=== PATIENT | male | born 1970 | race Caucasian/White ===

== ENCOUNTER 2023-02-16 13:53 | Emergency (ER) | payer OTHER, SELFPAY ==
[2023-02-16 14:11] VITALS: BP 147/97; PULSE 89; RESP 20; TEMP 36.6; O2SAT 95; BMI 37.2
--- NOTE | 2023-02-16 14:16 | XR_ITS ---
The [address] [address] Patient Name: DYLAN BRADY MRN: [id number] date: 1970 Sex: M Assigned Patient Location: ER Current Patient Location: ED.MAIN Accession/Order Number: [id number] Exam Date: 02/16/2023 14:19 Report Date: 02/16/2023 15:00 At the request of: EVELINE CROSS Procedure: XR hand RT min 3V EXAM: XR hand RT min 3V HISTORY: Right hand injury COMPARISON: None. TECHNIQUE: 3 views of the right hand FINDINGS: No acute fracture or dislocation. 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 The soft tissue is unremarkable. No radiopaque free body is seen within the soft tissue. XR/XR hand RT min 3V IMPRESSION: No acute fracture. Electronically authenticated by: CHEYENNE HERNANDEZ Date: 02/16/2023 15:00
--- NOTE | 2023-02-16 14:17 | ED_ITS ---
HPI - Wound/Laceration General Chief Complaint: Wound/Laceration Stated Complaint: UPPER EXTREMITY INJURY RIGHT HAND-[facility] Time Seen by Provider: 02/16/23 14:02 Source: patient Mode of arrival: walk-in Limitations: no limitations History of Present Illness HPI narrative: Patient is a 52-year-old male who presents to the emergency department for the evaluation of injury to the right hand that occurred approximately one hour ago work. He states that he pinched the skin of the right lateral hand in a machine and sustained a small laceration. He is right-hand dominant. Tetanus is up-to-date. No active bleeding at this time. No medications taken prior to arrival. He has no significant pain. Related Data Home Medications Medication Instructions Recorded Confirmed atenolol 100 mg tablet 100 mg PO DAILY 02/16/23 02/16/23 atorvastatin 20 mg tablet 20 mg PO DAILY 02/16/23 02/16/23 lisinopril 40 mg tablet 40 mg PO DAILY 02/16/23 02/16/23 Allergies Allergy/AdvReac Type Severity Reaction Status Date / Time prednisone Allergy swelling Verified 02/16/23 14:16 to face Review of Systems ROS Constitutional Denies: fever or chills Ears, nose, mouth, and throat Denies: throat pain Cardiovascular Denies: chest pain Respiratory Denies: shortness of breath Gastrointestinal Denies: nausea or vomiting Musculoskeletal Denies: back pain or neck pain Integumentary/Breast Denies: rash Hematologic/Lymphatic Denies: easy bruising Exam Narrative Exam Narrative: Gen.: Awake, alert, in no distress Head: Normocephalic, atraumatic ENT: Moist mucous membranes Respiratory: No respiratory distress Extremities: Moves extremities equally, 1.5 cm jagged laceration of the right lateral hand, minimal subcutaneous tissue visualization. No active bleeding. Normal flexion and extension of the fingers of the right hand. No decrease in sensation to the fingertips. Psych: Normal mood and affect Neuro: No focal neuro deficit Skin: Warm, dry Constitutional Vital Signs, click to edit/add: Last Vital Signs Temp 97.9 F 02/16/23 14:11 Pulse 89 02/16/23 14:11 Resp 20 02/16/23 14:11 BP 147/97 H 02/16/23 14:11 Pulse Ox 95 02/16/23 14:11 Course Vital Signs Vital signs: Vital Signs Temperature 97.9 F 02/16/23 14:11 Pulse Rate 89 02/16/23 14:11 Respiratory Rate 20 02/16/23 14:11 Blood Pressure 147/97 H 02/16/23 14:11 Pulse Oximetry 95 02/16/23 14:11 Temperature 97.9 F 02/16/23 14:11 Pulse Rate 89 02/16/23 14:11 Respiratory Rate 20 02/16/23 14:11 Blood Pressure 147/97 H 02/16/23 14:11 Pulse Oximetry 95 02/16/23 14:11 MDM - Wound/Laceration MDM Narrative Medical decision making narrative: X-ray with no evidence of acute abnormalities. Laceration repaired without difficulty. Please see procedure note for details. Follow-up with occupational health for suture removal in 8-10 days. Wound care discussed at bedside. Return to the Emergency Room if symptoms change or worsen. Laceration repair: Done under sterile conditions. The use of Shur-Clens prep the area. Local injection with lidocaine 1% was used, approximately 5 cc. The wound was irrigated copiously with normal saline. The wound was explored there was no evidence of foreign material. The laceration was approximated with 3-0 nylon. 3 simple interrupted sutures were placed. Patient tolerated the procedure well. The patient was neurovascularly intact post. the patient had bacitracin applied to the laceration and a dry sterile dressing was place. The patient will need to follow-up in the next 8-10 days for removal Medical Records Attestation: I reviewed the patient's medical records. Imaging Data XR hand: Attestation: I personally reviewed and interpreted this imaging study as follows: My impression: Three-view right hand: No acute fracture, dislocation, no soft tissue abnormality. Discharge Plan Discharge Chief Complaint: Wound/Laceration Clinical Impression: Laceration of right hand Time of Disposition Decision: 14:54 Condition: Good Prescriptions / Home Meds: No Action atenolol 100 mg tablet 100 mg PO DAILY atorvastatin 20 mg tablet 20 mg PO DAILY lisinopril 40 mg tablet 40 mg PO DAILY Instructions: Laceration (ED) Additional Instructions: Follow up with occupational health for suture removal in 8-10 days Stand Alone Forms: Portal Instructions Referrals: Shaikh Ren MD [Primary Care Provider] - 1 week
[2023-02-16] MEDS: BACITRACIN 0.9 GM PACKET 1 PACKET TOPICAL (14:33)
== END 2023-02-16 15:02 | disposition home or self-care (01) ==
PROVIDERS: Emergency Provider Student in an Organized Health Care Education/Training Program; PCP Internal Medicine
DX: S61.411A Laceration without foreign body of right hand, initial encounter (principal); W23.0XXA Caught, crushed, jammed, or pinched between moving objects, initial encounter
CPT/HCPCS: 12001; 73130; 99283